=== PATIENT | female | born 1950 | race Caucasian/White ===

== ENCOUNTER 2020-03-26 14:31 | Emergency (ER) | payer MEDICARE ==
--- NOTE | 2020-03-26 17:39 | RAD ---
RIGHT SHOULDER THREE VIEWS: 03/26/20 HISTORY: Injury, right shoulder pain. FINDINGS/IMPRESSION: There is a fracture involving the distal aspect of the right clavicle. No dislocation is seen. POS: [facility]
== END 2020-03-26 15:23 | disposition home or self-care (01) ==
LOC: MADERS 14:31
DX: S42.031A Displaced fracture of lateral end of right clavicle, initial encounter for closed fracture (principal); S00.03XA Contusion of scalp, initial encounter; S80.211A Abrasion, right knee, initial encounter; S50.311A Abrasion of right elbow, initial encounter; K21.9 Gastro-esophageal reflux disease without esophagitis; F32.9 Major depressive disorder, single episode, unspecified; E78.5 Hyperlipidemia, unspecified; I10 Essential (primary) hypertension; W01.0XXA Fall on same level from slipping, tripping and stumbling without subsequent striking against object, initial encounter

== ENCOUNTER 2020-09-27 22:55 | Emergency (ER) | payer MEDICARE ==
[2020-09-27 23:26] LABS: #Basophils 0.1 thou/uL (0.0-0.2); #Eosinphils 0.2 thou/uL (0.0-0.7); #Lymphocytes 3.9 thou/uL (1.20-3.40); #Monocytes 0.6 thou/uL (0.11-0.59); #Neutrophils 3.9 thou/uL (1.40-6.50); %Basophils 1.3 % (0.0-1.0); %Eosinophils 2.2 % (0.0-10.0); %Lymphocytes 44.7 % (21.0-51.0); %Monocytes 6.5 % (0.0-10.0); %Neutrophils 45.4 % (42.0-75.0); Hemoglobin 14.3 g/dL (12.0-16.0); Mean Corpuscular HGB CONC 32.7 g/dL (32.0-36.0); Mean Corpuscular Hemoglobin 31.1 pg (27.0-31.0); Mean Platelet Volume 7.9 fL (7.4-10.4); Platelet Count 207 thou/uL (130-400); RBC Distribution Width 12.1 % (11.5-14.5); Red Blood Cell (RBC) Count 4.61 mill/uL (4.20-5.40); White Blood Cell (WBC) Count 8.6 thou/uL (4.8-10.8)
--- NOTE | 2020-09-27 23:42 | RAD ---
Chest AP view INDICATION: Tachycardia and high blood pressure COMPARISON: December 20, 2017 FINDINGS: Lungs: Chronic lung changes are stable. Cardiac silhouette: The cardiomediastinal silhouette appears within normal limits. Pulmonary vasculature: Normal Pleural spaces: No pleural effusion or pneumothorax is demonstrated. Upper abdomen: No abnormality seen. Osseous structures: Stable deformity involving the right clavicle. No acute fracture or subluxation demonstrated. Additional findings: None. IMPRESSION: No acute cardiopulmonary abnormality.
[2020-09-27 23:47] LABS: ALT (SGPT) 21 U/L (8-55); AST (SGOT) 20 U/L (5-34); Albumin 4.5 g/dL (3.4-4.8); Alkaline Phosphatase 82 U/L (40-110); Anion Gap 15 mmol/L (10-20); BUN (Urea Nitrogen) 11 mg/dL (9.8-20.1); Bilirubin, Total 0.4 mg/dL (0.2-1.2); CK (CPK) 79 U/L (29-168); Calc. Creatinine Clearance 0 mL/min (70-130); Calcium 9.3 mg/dL (7.8-10.44); Carbon Dioxide 25 mmol/L (23-31); Chloride 103 mmol/L (98-107); Estimated GFR-MDRD 74; Globulin 1.8 g/dL (2.4-3.5); Glucose 183 mg/dL (80-115); Lipase 38 U/L (8-78); Protein, Total 6.3 g/dL (6.0-8.3); Sodium 139 mmol/L (136-145)
[2020-09-27] MEDS ORDERED: Aspirin Chewable 81 MG TAB ONE (23:55)
[2020-09-28 05:19] LABS: Troponin I Less than 0.010 ng/mL (< 0.028)
== END 2020-09-28 05:05 | disposition short-term general hospital (02) ==
LOC: MADERS 22:55
DX: R07.9 Chest pain, unspecified (principal); R00.0 Tachycardia, unspecified; E78.5 Hyperlipidemia, unspecified; I10 Essential (primary) hypertension; F32.9 Major depressive disorder, single episode, unspecified; Z79.899 Other long term (current) drug therapy
CPT/HCPCS: 36415; 71045; 80053; 82550; 83690; 84484; 85025; 85379; 93005; 94760

== ENCOUNTER 2022-08-28 16:45 | Emergency (ER) | payer MEDICARE ==
[~2022-08-28 16:45] MED LIST: Iopamidol 370 76% 125 ML VIAL FS ONE
[2022-08-28] MEDS ORDERED: Sodium Chloride 0.9% 500 ML ONE (17:36)
[2022-08-28] MEDS ORDERED: Ketorolac Tromethamine 30 MG/ML VIAL ONE (17:36)
[2022-08-28] MEDS ORDERED: Metoprolol Tartrate 5 MG/5 ML VIAL ONE (17:43)
[2022-08-28 17:57] LABS: Bicarbonate (HCO3v) 23.3 mmol/L (22.0-28.0); CO2 Tension (PvCO2) 36.9 mmHg (42.0-51.0); Calcium, Ionized 1.01 mmol/L (1.15-1.33); Chloride 90 mmol/L (98-107); Hemoglobin - Calc 15.2 g/dL (12.0-16.0); Potassium 3.9 mmol/L (3.5-5.1); Sodium 127 mmol/L (138-145); T. Carbon Dioxide 24.4 mmol/L (22.0-28.0); vO2 Saturation-calc 60.4 % (60.0-85.0)
[2022-08-28 17:59] LABS: ALT (SGPT) 18 U/L (8-55); AST (SGOT) 34 U/L (5-34); Albumin 4.2 g/dL (3.4-4.8); Alkaline Phosphatase 78 U/L (40-110); Anion Gap 16 mmol/L (10-20); BUN (Urea Nitrogen) 8 mg/dL (9.8-20.1); Bilirubin, Total 1.5 mg/dL (0.2-1.2); Calc. Creatinine Clearance 0 mL/min (70-130); Calcium 9.5 mg/dL (7.8-10.44); Carbon Dioxide 22 mmol/L (23-31); Chloride 92 mmol/L (98-107); Estimated GFR 81; Globulin 2.8 g/dL (2.4-3.5); Glucose 112 mg/dL (83-110); Magnesium 1.8 mg/dL (1.6-2.6); Potassium 3.9 mmol/L (3.5-5.1); Sodium 126 mmol/L (136-145)
[2022-08-28 18:02] LABS: Band 6 % (5-11); Hemoglobin 13.6 g/dL (12.0-16.0); Lymphocytes 18 % (21-51); MDiff Complete? YES; Mean Corpuscular HGB CONC 33.3 g/dL (32.0-36.0); Mean Corpuscular Volume 89.9 fl (78.0-98.0); Mean Platelet Volume 7.8 fL (7.4-10.4); Monocytes 3 % (0-10); Neutrophil 73 % (42-75); Platelet Count 192 thou/uL (130-400); Platelet Morphology Comment Appears Adequate; RBC Distribution Width 11.8 % (11.5-14.5); Red Blood Cell (RBC) Count 4.52 mill/uL (4.20-5.40); White Blood Cell (WBC) Count 14.5 thou/uL (4.8-10.8)
[2022-08-28] MEDS ORDERED: Sodium Chloride 0.9% 0 ML ONE (18:10)
[2022-08-28 18:56] LABS: Bilirubin Negative (Negative); Blood, Urine Trace (Negative); Clarity Clear (Clear); Glucose, Urine (Dipstick) Negative (Negative); Ketone, Urine Negative (Negative); Leukocyte Negative (Negative); Nitrite Negative (Negative); Protein, Urine (Dipstick) Negative (Neg-Trace); pH, Urine 6.5 (5.0-9.0)
[2022-08-28 19:01] LABS: Bacteria/HPF 1+ HPF (None Seen); RBC/HPF 0-3 HPF (0-3); Squamous Epithelial 0-3 HPF (0-3); WBC/HPF 0-3 HPF (0-3)
[2022-08-28] MEDS ORDERED: Sodium Chloride 0.9% 250 ML 250 ML ONE (19:11)
[2022-08-28] MEDS ORDERED: Sodium Chloride 0.9% 1,000 ML ONE (19:11)
[2022-08-28] MEDS ORDERED: Azithromycin 500 MG VIAL ONE (19:11)
[2022-08-28] MEDS ORDERED: cefTRIAXone\\ROCEPHIN 1 GM VIAL ONE (19:12)
[2022-08-28] MEDS ORDERED: Sodium Chloride 0.9% 100 ML ONE (19:12)
[2022-08-28 20:34] LABS: Lactic Acid 1.4 mmol/L (0.5-2.2)
[2022-08-28] MEDS ORDERED: Acetaminophen 500 MG TAB ONE (21:44)
[2022-08-28] MEDS ORDERED: methylPREDNISolone Sod Succ/PF 125 MG/2 ML VIAL ONE (22:34)
[2022-08-29] LABS: Troponin I Less than 0.010 ng/mL (< 0.028)
[2022-08-29] MEDS ORDERED: Metoprolol Tartrate 5 MG/5 ML VIAL ONE (02:10)
[2022-08-29 02:58] LABS: ALT (SGPT) 20 U/L (8-55); AST (SGOT) 49 U/L (5-34); Albumin 3.8 g/dL (3.4-4.8); Alkaline Phosphatase 67 U/L (40-110); Anion Gap 14 mmol/L (10-20); BUN (Urea Nitrogen) 8 mg/dL (9.8-20.1); Calc. Creatinine Clearance 0 mL/min (70-130); Calcium 8.5 mg/dL (7.8-10.44); Chloride 96 mmol/L (98-107); Estimated GFR 82; Globulin 2.6 g/dL (2.4-3.5); Glucose 151 mg/dL (83-110); Potassium 3.7 mmol/L (3.5-5.1); Protein, Total 6.4 g/dL (5.8-8.1); Sodium 127 mmol/L (136-145)
[2022-08-29 03:12] LABS: Carbon Dioxide 20 mmol/L (23-31)
== END 2022-08-29 18:43 | disposition short-term general hospital (02) ==
LOC: MADERS 16:45
DX: J18.9 Pneumonia, unspecified organism (principal); E87.1 Hypo-osmolality and hyponatremia; B97.4 Respiratory syncytial virus as the cause of diseases classified elsewhere; K21.9 Gastro-esophageal reflux disease without esophagitis; E78.5 Hyperlipidemia, unspecified; I10 Essential (primary) hypertension; E11.9 Type 2 diabetes mellitus without complications; Z79.84 Long term (current) use of oral hypoglycemic drugs; Z79.82 Long term (current) use of aspirin; Z79.899 Other long term (current) drug therapy
CPT/HCPCS: 71045; 71275; 80053; 81003; 81015; 82330; 82803; 83605; 83735; 83880; 84484; 85025; 87040; 87086; 87807; 93005; 96361; 96365; 96367; 96375; 96376; J0456; J0696; J1885; J2930; J3490; J7030; J7050; J7620; Q9967

== ENCOUNTER 2025-05-26 14:27 | Outpatient (CLI) | payer MEDICARE | END 2025-05-26 14:28 | disposition home or self-care (01) | LOC: MADRAD 14:27 | PROVIDERS: ATTEND Family Medicine | DX: M25.571 Pain in right ankle and joints of right foot (principal) ==